=== PATIENT | male | born 1950 | race Caucasian/White ===

== ENCOUNTER 2018-03-29 18:53 | Emergency (ER) | payer MEDICARE, OTHER ==
[2018-03-29 19:26] VITALS: BP 192/90; PULSE 61; RESP 18; TEMP 98.4
--- NOTE | 2018-03-29 20:02 | ED ---
Upper Extremity HPI - General Source: patient Mode of arrival: ambulatory Limitations: no limitations <Ivanna Gonzalez - Last Filed: 03/29/18 20:59> <Richard Robbins - Last Filed: 04/01/18 07:15> - General Chief Complaint: Extremity Injury, Upper Stated Complaint: rt shoulder injury Time Seen by Provider: 03/29/18 19:59 - History of Present Illness Initial Comments: This is a 67yo male with PMH of who presents today for CC of right shoulder pain, pt states that he was getting off a boat around 6:30pm when he tripped over a piece of the dock falling with hands outstretched bearing most of the weight of the fall on the right shoulder. Pt states that he has had a previous right shoulder injury from fall in 2016, but has not had any issue since. Pt admits to mild pain at rest but he states that he experiences the most with forward flexion of the right shoulder joint. The pain does not radiate. Pt denies any CP, dizziness, shortness of breath, LOC or head injury (Ivanna Gonzalez) - Related Data Allergies Allergy/AdvReac Type Severity Reaction Status Date / Time No Known Allergies Allergy Verified 03/29/18 19:26 Review of Systems ROS Other: All systems not noted in ROS Statement are negative. <Ivanna Gonzalez - Last Filed: 03/29/18 20:59> ROS Other: All systems not noted in ROS Statement are negative. <Richard Robbins - Last Filed: 04/01/18 07:15> ROS Statement: Those systems with pertinent positive or pertinent negative responses have been documented in the HPI. Past Medical History Past Medical History: Hypertension History of Any Multi-Drug Resistant Organisms: None Reported Additional Past Surgical History / Comment(s): open heart surgery. stent was also placed. ingunial hernia. Past Psychological History: No Psychological Hx Reported Smoking Status: Current every day smoker Past Alcohol Use History: Occasional Past Drug Use History: None Reported <Ivanna Gonzalez - Last Filed: 03/29/18 20:59> General Exam Limitations: no limitations <Ivanna Gonzalez - Last Filed: 03/29/18 20:59> <Richard Robbins - Last Filed: 04/01/18 07:15> - General Exam Comments Initial Comments: General: The patient is awake and alert, in no distress, and does not appear acutely ill. Eye: Pupils are equal, round and reactive to light, extra-ocular movements are intact. No nystagmus. There is normal conjunctiva bilaterally. No signs of icterus. Ears, nose, mouth and throat: There are moist mucous membranes and no oral lesions. Neck: The neck is supple, there is no tenderness or JVD. Cardiovascular: There is a regular rate and rhythm. No murmur, rub or gallop is appreciated. Respiratory: Lungs are clear to auscultation, respirations are non-labored, breath sounds are equal. No wheezes, stridor, rales, or rhonchi. Musculoskeletal: No abrasions or obvious defects/step offs of the shoulders. Normal examination of the shoulder, elbows, wrists and hands b/l. Normal ROM and 5/5 strength of shoulder, elbows, wrists and hands b/l, however significant crepitus with forward flexion of the right shoulder. No point tenderness to palpation over the shoulder, elbows, wrists or hands. Sensation intact of the UE equally b/l. No badge parathesias Radial and ulnar pulses equal bilaterally 2+. Capillary refill <2seconds. (-) empty can, (-) drop arm (-) ac cross arm, no winging of the scapula, (+) Neers of right shoulder. No tennderness with ROM of the cervical spine or pain with palpation midline/paravertebral of cervical spine. Ulnar, median and radial n intact b/l. +2 DTR triceps, brachialradialis. Neurological: A&O x 3. CN II-XII intact, There are no obvious motor or sensory deficits. Coordination appears grossly intact. Speech is normal. Skin: Skin is warm and dry and no rashes or lesions are noted. Psychiatric: Cooperative, appropriate mood & affect, normal judgment. (Ivanna Gonzalez) Course <Ivanna Gonzalez - Last Filed: 03/29/18 20:59> <Richard Robbins - Last Filed: 04/01/18 07:15> Vital Signs 03/29/18 19:21 Temperature 98.4 F Pulse Rate 61 Respiratory 18 Rate Blood Pressure 192/90 O2 Sat by Pulse 96 Oximetry - Reevaluation(s) Reevaluation #1: 04/01/18 07:15 PA supervision: I have reviewed and agree with the PA findings including all diagnostic interpretations and treatment plans less otherwise (Richard Robbins) Medical Decision Making <Ivanna Gonzalez - Last Filed: 03/29/18 20:59> <Richard Robbins - Last Filed: 04/01/18 07:15> - Medical Decision Making 67 yo with CC of fall and right shoulder pain concerning for possible dislocation or fracture. Pt BP elevated at triage pt stated that he has hypertension and does not have any current complaints including chest pain, SOB , dyspnea, anuria, visual changes, headache or any other complaints. XR right shoulder obtained revealing no acute fracture or dislocation reviewed by myself , Dr. Denney and radiology. Pt neurvascularly intact. Crepitus upon exam most likely due to arthritic changes seen on XR. Pt was placed in sling and instrcuted to f/u with orthopedic surgery in 1-2 days. Pt may take over the counter ibuprofen or tylenol for pain. Pt agreed with plan and stated he would f /u with orthopedics for right shoulder and PCP for hypertension when he is back in [place]. Case discussed in detail with Dr. Denney and pt discharged in stable condition. (Ivanna Gonzalez) Disposition Is patient prescribed a controlled substance at d/c from ED?: No Time of Disposition: 20:38 <Ivanna Gonzalez - Last Filed: 03/29/18 20:59> <Richard Robbins - Last Filed: 04/01/18 07:15> Clinical Impression: Right shoulder pain Disposition: HOME SELF-CARE Condition: Good Instructions: Shoulder Pain (ED) Additional Instructions: Please use over the counter pain medication as discussed. Please follow-up with orthopedic surgery in the next 2 days. Please return to emergency room if the symptoms increase or worsen or for any other concerns. Referrals: Nonstaff,Physician [Primary Care Provider] - 1-2 days Dion Kaiser MD [Medical Doctor] - 1-2 days
--- NOTE | 2018-03-29 20:26 | XR ---
EXAMINATION TYPE: XR shoulder complete RT DATE OF EXAM: 03/29/2018 CLINICAL HISTORY: Right shoulder pain, fall TECHNIQUE: Three views of the right shoulder are obtained. COMPARISON: None. FINDINGS: There is no acute fracture/dislocation evident in the right shoulder. The acromioclavicul ar and glenohumeral joint spaces appear within normal limits. The visualized ribs are intact and unr emarkable. Sternotomy wires and sternal retention device is partially visualized. IMPRESSION: No acute right shoulder fracture dislocation..
== END 2018-03-29 20:42 | disposition home or self-care (01) ==
LOC: EC 18:53
DX: M25.511 Pain in right shoulder (principal); I10 Essential (primary) hypertension; F17.200 Nicotine dependence, unspecified, uncomplicated; W18.09XA Striking against other object with subsequent fall, initial encounter; Y93.89 Activity, other specified; Y92.89 Other specified places as the place of occurrence of the external cause
CPT/HCPCS: 99283